=== PATIENT | male | born 1975 | race Caucasian/White ===

== ENCOUNTER 2018-10-11 09:07 | Emergency (ER) | payer OTHER ==
[2018-10-11] MEDS: KETOROLAC 30 MG INJ IM (09:58)
== END 2018-10-11 10:18 | disposition home or self-care (01) ==
LOC: FTE 09:07
DX: M54.5 Low back pain (principal); F17.210 Nicotine dependence, cigarettes, uncomplicated
CPT/HCPCS: 96372; 99284-25